=== PATIENT | female | born 1960 ===

== ENCOUNTER → 2018-05-02 21:09 | Outpatient (REF) | payer OTHER, SELFPAY ==
[2018-05-02 22:02] LABS: Add Manual Diff / Slide Review NO; Basophils Percent Auto 0.6 % (0-2); Eosinophils Percent Auto 4.8 % (2-4); Hematocrit 41.3 % (36-46); Hemoglobin 13.7 g/dL (12.0-16.0); Lymphocytes Percent Auto 45.6 % (25-40); Mean Corpuscular HGB Conc 33.3 % (30-36); Mean Corpuscular Hemoglobin 30.8 PG (26-34); Mean Corpuscular Volume 92.6 fL (80-100); Monocytes Percent Auto 11.3 % (3-14); Neutrophils Absolute Auto 2000 /uL (1500-7000); Neutrophils Percent Auto 37.7 % (50-75); Platelet Count 262 X10^3/uL (150-400); Red Blood Cell Count 4.46 X10^6/uL (4.0-5.2); Red Cell Distribution Width 13.4 % (11.6-14.8); White Blood Cell Count 5.4 X10^3/uL (4.5-11.0)
[2018-05-02 22:15] LABS: Alanine Aminotransferase 26 IU/L (9-52); Albumin 4.4 g/dL (3.5-5.0); Albumin Globulin Ratio 1.5 (1.0-2.8); Alkaline Phosphatase 54 U/L (38-126); Aspartate Aminotransferase 29 IU/L (14-36); BUN Creatinine Ratio 18.6 (6-22); Bilirubin Total 0.5 mg/dL (0.2-1.3); Blood Urea Nitrogen 13 mg/dL (7-17); Calcium 9.6 mg/dL (8.4-10.2); Carbon Dioxide 28 mmol/L (22-32); Chloride 102 mmol/L (98-107); Estimated Glomerular Filt Rate > 60.0 mL/min (>60); Glucose 82 mg/dL (70-100); HEMOLYSIS < 15 (0-50); Potassium 4.5 mmol/L (3.4-5.1); Sodium 142 mmol/L (137-145); Total Protein 7.4 g/dL (6.3-8.2)
[2018-05-02 22:44] LABS: Thyroid Stimulating Hormone 2.74 uIU/mL (0.47-4.68)
[2018-05-02 22:48] LABS: Ferritin 75.1 ng/mL (11.1-264)
[2018-05-02 23:41] LABS: Free T3, Triiodothyronine Free 3.12 pg/mL (2.77-5.27); Free T4, Direct Thyroxine 1.03 ng/dL (0.78-2.19)
[2018-05-04 15:58] LABS: Progesterone < 0.5 ng/mL
[2018-05-04 17:54] LABS: Sex Hormone Binding Globulin 50 nmol/L (14-73)
[2018-05-05 15:29] LABS: Dehydroepiandrosterone Sulfate 101 mcg/dL (8-188)
[2018-05-05 19:12] LABS: Estrogen 90.7 pg/mL
[2018-05-08 04:31] LABS: Testosterone Free 2.1 pg/mL (0.1-6.4); Testosterone Total 29 ng/dL (2-45)
== END ==
LOC: LAB 21:09
PROVIDERS: Visit Provider Naturopath
DX: N95.1 Menopausal and female climacteric states (principal); Z79.890 Hormone replacement therapy; R53.83 Other fatigue; E03.9 Hypothyroidism, unspecified
CPT/HCPCS: 36415; 80053; 82627; 82672; 82728; 84144; 84270; 84402; 84403; 84439; 84443; 84481; 85025